=== PATIENT | male | born 1940 | race Caucasian/White ===

== ENCOUNTER → 2018-02-15 | Emergency (ER) | payer OTHER ==
[~2018-02-15] VITALS: Ht 182.9 cm; Wt 61.2 kg
[~2018-02-15] MED LIST: ATIVAN0.5 M1; CARVEDILOL25 MG; COZAAR100 MG; FOSAMAX70 MG; HYDRALAZINE HCL25 MG; PAXIL20 MG; RISPERIDONE0.5 MG; TEMAZEPAM15 MG; WELLBUTRIN XL150 M1
== END | disposition left against medical advice (07) ==
LOC: ER 22:19
DX: Z53.20 Procedure and treatment not carried out because of patient's decision for unspecified reasons (principal)